=== PATIENT | female | born 1990 | race Two or more races ===

== ENCOUNTER → 2017-08-09 | Outpatient (CLI) | payer OTHER ==
[2017-08-09 11:53] LABS: ALT 23 U/L (9-52); AST 21 U/L (14-36); Albumin 4.1 g/dL (3.5-5.0); Alkaline Phosphatase 43 U/L (38-126); Anion Gap 8 mmol/L; Blood Urea Nitrogen 10 mg/dL (7-17); Calcium 9.6 mg/dL (8.4-10.2); Carbon Dioxide 28 mmol/L (22-30); Chloride 102 mmol/L (98-107); Cholesterol 190 mg/dL (<200); Glucose 95 mg/dL (74-99); HDL Cholesterol 72 mg/dL (40-60); LDL Cholesterol,Calculated 103 mg/dL (0-99); Sodium 138 mmol/L (137-145); Total Bilirubin 0.6 mg/dL (0.2-1.3); Total Protein 7.1 g/dL (6.3-8.2); Triglycerides 74 mg/dL (<150)
[2017-08-09 12:08] LABS: Basophils % (A) 0 %; Eosinophils % (A) 0 %; HCT 40.1 % (34.0-46.0); HGB 12.7 gm/dL (11.4-16.0); Lymphocytes # (A) 1.9 k/uL (1.0-4.8); Lymphocytes % (A) 26 %; MCH 30.2 pg (25.0-35.0); MCHC 31.7 g/dL (31.0-37.0); MCV 95.4 fL (80.0-100.0); Mean Platelet Volume 7.6; Monocytes # (A) 0.3 k/uL (0-1.0); Monocytes % (A) 5 %; Neutrophils % (A) 67 %; Platelet Count 330 k/uL (150-450); RDW 12.6 % (11.5-15.5); WBC 7.4 k/uL (3.8-10.6)
[2017-08-09 12:09] LABS: T4, Free (Free Thyroxine) 0.78 ng/dL (0.78-2.19)
[2017-08-09 16:20] LABS: Iron Saturation 38.96 (12.00-45.00)
== END | disposition home or self-care (01) ==
LOC: LABWHC1 11:24
PROVIDERS: ATTEND Family Medicine
DX: D64.9 Anemia, unspecified (principal); E55.9 Vitamin D deficiency, unspecified; E66.9 Obesity, unspecified
CPT/HCPCS: 36415; 80053; 80061; 82607; 83540; 83550; 84439; 84443; 85025

== ENCOUNTER → 2017-11-04 | Outpatient (CLI) | payer OTHER ==
--- NOTE | 2017-11-04 13:48 | MR ---
EXAMINATION TYPE: MR lumbar spine wo con DATE OF EXAM: 11/04/2017 COMPARISON: NONE HISTORY: LBP, Right Lumbar Radiculopathy TECHNIQUE: Multiplanar, multisequence images of the lumbar spine were acquired. FINDINGS: The lumbar vertebral bodies maintain normal vertebral body height and alignment. Bone marro w signal is overall within normal limits. Conus medullaris is unremarkable terminating at L1-L2. L1-L2: Normal disc appearance without desiccation. No herniation, protrusion or disc bulging. No ca nal stenosis is present. Foramina are patent bilaterally. L2-L3: Normal disc appearance without desiccation. No herniation, protrusion or disc bulging. No ca nal stenosis is present. Foramina are patent bilaterally. L3-L4: Normal disc appearance without desiccation. No herniation, protrusion or disc bulging. No ca nal stenosis is present. Foramina are patent bilaterally. L4-L5: There is a mild broad-based disc bulge and early facet arthropathy as well as ligamentum flavu m buckling resulting in mild bilateral neural foraminal narrowing. Spinal canal stenosis. L5-S1: There is a broad-based disc bulge without spinal canal stenosis or neural foraminal narrowing. IMPRESSION: 1. No evidence of disc herniation or spinal canal stenosis. 2. Broad-based disc bulge at L4-L5 creating mild bilateral neural foraminal narrowing. 3. Broad-based disc bulge at L5-S1 without spinal canal stenosis or neural foraminal narrowing.
== END | disposition home or self-care (01) ==
LOC: RADMRIMAIN 10:58
PROVIDERS: ATTEND Family Medicine
DX: M99.73 Connective tissue and disc stenosis of intervertebral foramina of lumbar region (principal); M51.17 Intervertebral disc disorders with radiculopathy, lumbosacral region
CPT/HCPCS: 72148

== ENCOUNTER 2018-06-02 13:02 | Emergency (ER) | payer OTHER ==
[2018-06-02 13:08] VITALS: RESP 18
--- NOTE | 2018-06-02 13:47 | ED ---
General Adult HPI - General Chief complaint: ENT Stated complaint: Sore Throat Source: patient, RN notes reviewed, old records reviewed Mode of arrival: ambulatory Limitations: no limitations - History of Present Illness Initial comments: 28-year-old female patient with past medical history of chronic pain presents to ED with 2 days of sore throat. Patient also complains of approximately 6 weeks of waxing and waning cough. Patient denies any other symptoms. Patient denies abdominal pain, nausea vomiting diarrhea, fever or chills, any other symptoms. Patient states that she cannot be because she had tubal ligation. Systemic: Pt denies fatigue, myalgia, fever/chills, rash. Pt denies weakness, night sweats, weight loss. Neuro: Pt denies headache, visual disturbances, syncope or pre-syncope. HEENT: Pt denies ocular discharge or irritation, otalgia, rhinorrhea, or notable lymphadenopathy. Cardiopulmonary: Pt denies chest pain, SOB, heart palpitations, dyspnea on exertion. Abdominal/GI: Pt denies abdominal pain, n/v/d. : Pt denies dysuria, burning w/ urination, frequency/urgency. Denies new onset urinary or bowel incontinence. MSK: Pt denies myalgia, loss of strength or function in extremities. Neuro: Pt denies new onset weakness, paresthesias. - Related Data Previous Rx's Medication Instructions Recorded Ibuprofen [Motrin] 600 mg PO Q8HR PRN #30 tab 07/06/14 HYDROcodone/APAP 5-325MG [Shoals 5] 1 each PO Q4HR PRN #30 tab 11/25/14 methylPREDNISolone Dose Pack 4 mg PO DIRECTED #21 package 06/02/18 [Medrol Dose Pack] Allergies Allergy/AdvReac Type Severity Reaction Status Date / Time amoxicillin [Amoxicillin] Allergy Rash/Hives Verified 06/02/18 13:08 ceftriaxone sodium Allergy Swelling Verified 06/02/18 13:08 [From Rocephin] codeine Allergy Swelling Verified 06/02/18 13:08 latex Allergy Swelling Verified 06/02/18 13:08 Review of Systems ROS Statement: Those systems with pertinent positive or pertinent negative responses have been documented in the HPI. ROS Other: All systems not noted in ROS Statement are negative. Past Medical History Past Medical History: No Reported History Additional Past Medical History / Comment(s): back pain History of Any Multi-Drug Resistant Organisms: None Reported Past Surgical History: No Surgical Hx Reported Past Psychological History: Anxiety, Bipolar, Depression Smoking Status: Never smoker Past Alcohol Use History: None Reported, Rare Past Drug Use History: None Reported General Exam - General Exam Comments Initial Comments: Constitutional: NAD, AOX3, Pt has pleasant affect. HEENT: NC/AT, trachea midline, neck supple, no lymphadenopathy. Posterior pharynx non erythematous, without exudates. External ears appear normal, without discharge. Mucous membranes moist. Eyes PERRLA, EOM intact. There is no scleral icterus. No pallor noted. Cardiopulmonary: RRR, no murmurs, rubs or gallops, no JVD noted. Lungs CTAB in anterior and posterior day. No peripheral edema. Abdominal exam: Abdomen soft and non-distended. Abdomen non-tender to palpation in all 4 quadrants. Bowel sounds active in LLQ. No hepatosplenomegaly. No ecchymosis Neuro: CN II-XII grossly intact. No nuchal rigidity. MSK: No posterior calf tenderness bilaterally, homans sign negative bilaterally. Posterior tibialis and radial pulse +2 bilaterally. Sensation intact in upper and lower extremities. Full active ROM in upper and lower extremities, 5/5 stregnth. Limitations: no limitations Course Vital Signs 06/02/18 06/02/18 13:06 15:30 Temperature 98.2 F 97.7 F Pulse Rate 81 77 Respiratory 18 18 Rate Blood Pressure 135/86 145/84 O2 Sat by Pulse 99 100 Oximetry Medical Decision Making - Medical Decision Making 28-year-old female patient with past medical history of chronic pain presents to ED with 2 days of sore throat. Patient also complains of approximately 6 weeks of waxing and waning cough. Patient denies any other symptoms. Patient denies abdominal pain, nausea vomiting diarrhea, fever or chills, any other symptoms. Physical exam did not display acute pathology. Group A strep swab negative. Chest x-ray did not display acute process. Patient treated for bronchitis with Medrol Dosepak. Patient to follow up with PCP in 1-2 days. Patient to return to ED if new signs or symptoms develop. Case discussed with Dr. Hernandez. - Lab Data Lab Results 06/02/18 Range/Units 13:34 Group A Strep Rapid Negative (Negative) Disposition Clinical Impression: Bronchitis Disposition: HOME SELF-CARE Condition: Good Instructions: Acute Bronchitis (ED) Additional Instructions: Patient to adhere to previously discussed treatment plan and will take medication(s) as directed. Patient to follow up with PCP in 1-2 days. Patient to return to ED if symptoms do not improve. Prescriptions: methylPREDNISolone Dose Pack [Medrol Dose Pack] 4 mg PO DIRECTED #21 package Is patient prescribed a controlled substance at d/c from ED?: No Referrals: Shelby Jaquez MD [Primary Care Provider] - 1-2 days Time of Disposition: 15:23
--- NOTE | 2018-06-02 14:09 | XR ---
EXAMINATION TYPE: XR chest 2V DATE OF EXAM: 06/02/2018 COMPARISON: NONE HISTORY: Sore throat TECHNIQUE: Frontal and lateral views of the chest are obtained. FINDINGS: Heart and mediastinum are normal. Lungs are clear. Diaphragm is normal. Bony thorax appear s normal. IMPRESSION: Normal chest
[2018-06-02 15:32] VITALS: BP 145/84; PULSE 77; TEMP 97.7
== END 2018-06-02 15:30 | disposition home or self-care (01) ==
LOC: EC 13:02
DX: J40 Bronchitis, not specified as acute or chronic (principal); Z88.0 Allergy status to penicillin; Z88.1 Allergy status to other antibiotic agents; Z88.5 Allergy status to narcotic agent; Z91.040 Latex allergy status
CPT/HCPCS: 71046; 87081; 87430; 99284

== ENCOUNTER → 2018-07-31 | Outpatient (CLI) | payer OTHER | LOC: CPPFTMAIN 11:52 | PROVIDERS: ATTEND Family Medicine | DX: J98.4 Other disorders of lung (principal) | CPT/HCPCS: 94060; 94726; 94729 ==

== ENCOUNTER → 2018-09-27 | Outpatient (CLI) | payer OTHER ==
--- NOTE | 2018-09-28 13:04 | CT ---
EXAMINATION TYPE: CT abdomen pelvis w con DATE OF EXAM: 09/27/2018 COMPARISON: None INDICATION: WORSENING PELVIC PAIN DLP: 1493.3 mGycm, Automated exposure control for dose reduction was used. CONTRAST: 100 mL of Isovue 300. Study performed with Oral Contrast TECHNIQUE: Axial images were obtained from above the diaphragm to the pubic rami in the axial plane a t 5 mm thick sections. Reconstructed images are reviewed on the computer in the coronal plane. FINDINGS: Limited CT sections are obtained the lung bases. The lung bases are clear. CT ABDOMEN: There is a wide anterior abdominal wall hernia in the periumbilical region with an openin g of 5.5 cm. Liver: Normal Spleen: Normal Pancreas: Normal Adrenal glands: The adrenal glands are normal. Gallbladder: Decompressed. Kidneys: No masses are evident. No hydronephrosis is present. No cysts are present. Delayed images were obtained through the kidneys, which remain unremarkable. Aorta: Normal Inferior vena cava: Normal. CT PELVIS: Loops of bowel within the abdomen and pelvis are normal. There are loops of bowel lacking oral co ntrast limiting bowel evaluation. Appendix: Normal as visualized. Urinary bladder: Normal. Genitourinary structures: Uterus appears unremarkable. Adnexal regions are clear. Small to moderate a mount of free fluid appears to be within the cul-de-sac. Osseous structures: No suspicious lytic or sclerotic lesions. IMPRESSIONS: 1. Small to moderate amount of free fluid within the pelvis may be physiologic. Consider evaluation with ultrasound. 2. No acute acute abdomen or pelvic process otherwise evident.
== END | disposition home or self-care (01) ==
LOC: RADCTMAIN 14:52
PROVIDERS: ATTEND Family Medicine
DX: R10.32 Left lower quadrant pain (principal)
CPT/HCPCS: 74177; Q9967

== ENCOUNTER → 2018-12-31 | Outpatient (CLI) | payer OTHER ==
--- NOTE | 2019-01-01 10:01 | US ---
EXAMINATION TYPE: US pelvic complete DATE OF EXAM: 12/31/2018 COMPARISON: CT 2019 CLINICAL HISTORY: 28-year-old female R10.32 left lower quadrant pain. Left pelvic pain x 1 month, gra chet 5, para 4, miscarriage 1, history of tubal ligation. TECHNIQUE: Transabdominal sonographic images of the pelvis were acquired. Date of LMP: 12/22/2018 FINDINGS: EXAM MEASUREMENTS: Uterus: 8.7 x 3.4 x 5.4 cm Endometrial Stripe: 0.6 cm Right Ovary: 3.2 x 1.6 x 1.9 cm Left Ovary: 2.8 x 1.7 x 1.7 cm 1. Uterus: anteverted, heterogenous 2. Endometrium: wnl 3. Right Ovary: 1.8 x 1.3 x 1.3cm cystic area 4. Left Ovary: wnl 5. Bilateral Adnexa: wnl 6. Posterior cul-de-sac: wnl IMPRESSION: 1. Anteverted uterus. Endometrial stripe measures 6 mm. 2. A 1.8 cm dominant follicle or functional cyst in the right ovary. 3. No pelvic free fluid.
== END | disposition home or self-care (01) ==
LOC: RADUSWWP 15:53
PROVIDERS: ATTEND Family Medicine
DX: R10.32 Left lower quadrant pain (principal)
CPT/HCPCS: 76856

== ENCOUNTER → 2019-08-12 | Outpatient (CLI) | payer OTHER ==
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
== END | disposition home or self-care (01) ==
LOC: RADMRIMAIN 09:05
PROVIDERS: ATTEND Psychiatry & Neurology Neurology
DX: G43.019 Migraine without aura, intractable, without status migrainosus (principal)
CPT/HCPCS: 70551